=== PATIENT | male | born 1950 | race Caucasian/White ===

== ENCOUNTER → 2020-05-02 | Outpatient (CLI) | payer OTHER ==
--- NOTE | 2020-05-02 10:48 | XR ---
Right shoulder HISTORY: Chronic pain 3 views of the right shoulder Bone mineralization, joint spaces and alignment are maintained. Right lung apex is normal. Suspect is a distal acromial spur. IMPRESSION: Correlate for possible impingement. Shoulder MRI may be of benefit.
--- NOTE | 2020-05-02 10:51 | XR ---
Lumbar spine HISTORY: Chronic pain 3 views of the lumbar spine Correlation prior exam 2015 There is multilevel spondylosis. Loss of disc height is present at L5-S1, L3-4, L2-3 and L1-2. Lumbar vertebral bodies show preserved height and alignment. Bone mineralization is reduced. Sclerosis is p resent posterior elements of the lower lumbar spine. Sclerotic vascular calcifications noted incident ally. There is mild spinal curvature. IMPRESSION: Degenerative disease, osteopenia, facet arthropathy.
--- NOTE | 2020-05-02 10:57 | XR ---
Bilateral knees HISTORY: Chronic pain, R989, M 19 111, M4 79, M1711, M1732 3 views of each knee submitted on a total of 6 images Spurring is present at patellofemoral joints. There are dense vascular calcification. Bone mineraliza tion, alignment are maintained. No sizable joint effusion. No fracture or dislocation. There is chond rocalcinosis noted incidentally greater on the left. IMPRESSION: Osteoarthritis, consider crystal deposition arthropathy.
--- NOTE | 2020-05-02 11:34 | XR ---
EXAMINATION TYPE: XR chest 2V DATE OF EXAM: 05/02/2020 COMPARISON: NONE HISTORY: Routine physical, R0989 TECHNIQUE: Frontal and lateral views of the chest are obtained. FINDINGS: Prominent lung volumes with flattening of hemidiaphragms noted suggesting COPD. Anterior b ridging osteophytes show flowing appearance, preservation of the disc spaces suggestive of diffuse id iopathic skeletal hyperostosis. No evident pneumothorax or pleural effusion. Cardiac mediastinal mya houette, pulmonary vascularity and harinder are within normal limits. The aorta is dense. IMPRESSION: No acute cardiopulmonary process.
== END | disposition home or self-care (01) ==
LOC: RADXRYALE 08:38
PROVIDERS: ATTEND Family Medicine
DX: M51.36 Other intervertebral disc degeneration, lumbar region (principal); M47.816 Spondylosis without myelopathy or radiculopathy, lumbar region; M85.88 Other specified disorders of bone density and structure, other site; M17.0 Bilateral primary osteoarthritis of knee; M19.111 Post-traumatic osteoarthritis, right shoulder; R09.89 Other specified symptoms and signs involving the circulatory and respiratory systems
CPT/HCPCS: 71046; 72100

== ENCOUNTER → 2020-06-30 | Outpatient (CLI) | payer MEDICARE, OTHER ==
--- NOTE | 2020-06-30 15:44 | MR ---
EXAMINATION TYPE: MR shoulder RT wo con DATE OF EXAM: 06/30/2020 COMPARISON: None HISTORY: Pain in right shoulder, attent rtc Technique: Multiplanar, multiecho imaging on a 3.0 Quyen magnet is performed through the shoulder. Findings: Long head of the biceps tendon is within the bicipital groove. No significant joint effusion is evident. Minimal free fluid is adjacent to the long head of biceps t endon. Glenoid labrum as visualized on this noncontrast study appears intact. Rotator cuff tendons are evaluated. There is signal transversing the distal supraspinatus tendon. So me fibers appear to remain present partial tear of at least 1 cm is likely present some partial retra ction to the tip of the acromion. No muscle atrophy or fatty infiltration is evident. The acromioclavicular junction is hypertrophied which can contribute to impingement syndrome. IMPRESSIONS: 1. Partial tear with retraction of the distal supraspinatus tendon. Torn tendon is retracted to the d istal acromion.
== END | disposition home or self-care (01) ==
LOC: RADMRIMAIN 10:25
PROVIDERS: ATTEND Orthopaedic Surgery
DX: M75.111 Incomplete rotator cuff tear or rupture of right shoulder, not specified as traumatic (principal)